=== PATIENT | male | born 1965 | race Two or more races ===

== ENCOUNTER 2019-01-05 10:28 | Inpatient (IN) | payer MEDICAID, OTHER ==
--- NOTE | 2019-01-05 11:22 | EDPHY ---
H & P Time Seen by Provider: 01/05/19 11:20 HPI/ROS: CHIEF COMPLAINT: Near syncope today HISTORY OF PRESENT ILLNESS: Patient takes ibuprofen intermittently for back pain, was worse yesterday and was seen at the clinic and prescribed Zanaflex. Today at 9:00 a.m. He had an episode at home of syncope or near syncope and his describes eyes rolling back and he was unresponsive for a few seconds while sitting. Some generalized weakness today, denies melena. Denies chest pain or shortness of breath. No seizure activity described. Asymptomatic now except for some back pain. REVIEW OF SYSTEMS: Eye: no change in vision ENT: Mild sore throat Cardiac: HPI Pulmonary: no cough or SOB Abdomen: no vomiting, diarrhea, abdominal pain Musculoskeletal: HPI Skin: no rash Neuro: no headache Constitutional: no fever : no urinary symptoms A comprehensive 10 point review of systems is otherwise negative aside from elements mentioned in the history of present illness. PAST MEDICAL HISTORY: Negative except for HPI Social history: Regular alcohol per the , history and physical performed with transit mixer operator personally present Nelia Ball General Appearance: Alert and conversant, cooperative. Eyes: No scleral icterus. ENT, Mouth: Normal mucous membranes. No tongue laceration or abrasion. Respiratory: Normal respiratory effort, breath sounds equal, lungs are clear to auscultation. Cardiovascular: Regular rate and rhythm. Gastrointestinal: Abdomen is soft and non tender. Rectal exam shows dark brown stool sent for Hemoccult. Neurological: Alert, face symmetric, normal motor and sensory in extremities. Skin: Warm and dry, no rashes. Musculoskeletal: No peripheral edema. Psychiatric: Not agitated. Emergency Department course/MDM: Hemoglobin and hematocrit 7 and 24, blood pressure 87/55 on 2nd. IV fluid resuscitation, admission for evaluation of new diagnosis of severe anemia. Nahun Hager 1143. Blood pressure improved to greater than 100 with IV fluid resuscitation. I think this is related to volume depletion and anemia, not to infection or sepsis. Smoking Status: Never smoked Constitutional: Initial Vital Signs Temperature (C) 36.4 C 01/05/19 10:33 Heart Rate 52 L 01/05/19 10:33 Respiratory Rate 15 01/05/19 10:33 Blood Pressure 100/67 01/05/19 10:33 O2 Sat (%) 99 01/05/19 10:33 O2 Delivery Mode Room Air Allergies/Adverse Reactions: No Known Allergies Allergy (Verified 01/05/19 14:01) Home Medications: Medication Instructions Recorded Calcium Carbonate [Oyster Shell 500 mg PO DAILY 01/05/19 Calcium 500 mg (*)] Ibuprofen [Motrin (*)] 200 mg PO BID PRN 01/05/19 Tizanidine HCl [Zanaflex] 4 mg PO Q6 PRN 01/05/19 Medical Decision Making - Diagnostics EKG Interpretation: 12-lead EKG interpreted by me; official reading is in computer system. My interpretation is sinus bradycardia rate 49 with early repolarization. Differential Diagnosis: Differential for anemia considered including but not limited to upper GI bleed, hemolysis, bone marrow failure, lower GI bleed. Critical Care Time: Critical care time spent by me, Dr. Winkler, exclusively with the care of this patient was 35 minutes, exclusive of PA or MOBILE ELECTRONICS INSTALLER time and exclusive of separate procedures. The organ system at risk was hematologic and I ordered IV fluid resuscitation, serial exam, admission to hospital to stabilize the patient and prevent worsening of the patient's condition. - Data Points Laboratory Results: Laboratory Results 01/05/19 10:45 01/05/19 10:45 01/05/19 01/05/19 01/05/19 11:40 11:12 10:45 WBC RBC Hgb Hct MCV MCH MCHC RDW Plt Count PT Pending INR Pending APTT Pending Sodium Potassium Chloride Carbon Dioxide Anion Gap BUN Creatinine Estimated GFR Glucose Calcium Iron TIBC Iron Saturation Ferritin Total Bilirubin AST ALT Alkaline Phosphatase POC Troponin I 0.00 ng/mL ng/mL (0.00-0.08) Total Protein Albumin Stool Occult Bld Scrn NEGATIVE (NEGATIVE) Patient ABO/Rh Antibody Screen 01/05/19 01/05/19 01/05/19 10:45 10:45 10:45 WBC 5.04 10^3/uL 10^3/uL (3.80-9.50) RBC 3.03 10^6/uL L 10^6/uL (4.40-6.38) Hgb 7.7 g/dL L g/dL (13.7-17.5) Hct 24.7 % L % (40.0-51.0) MCV 81.5 fL fL (81.5-99.8) MCH 25.4 pg L pg (27.9-34.1) MCHC 31.2 g/dL L g/dL (32.4-36.7) RDW 17.1 % H % (11.5-15.2) Plt Count 165 10^3/uL 10^3/uL (150-400) PT INR APTT Sodium Potassium Chloride Carbon Dioxide Anion Gap BUN Creatinine Estimated GFR Glucose Calcium Iron 13.0 mcg/dL L mcg/dL (49.0-199.0) TIBC Pending Iron Saturation Pending Ferritin Pending Total Bilirubin AST ALT Alkaline Phosphatase POC Troponin I Total Protein Albumin Stool Occult Bld Scrn Patient ABO/Rh O POSITIVE Antibody Screen NEGATIVE 01/05/19 10:45 WBC RBC Hgb Hct MCV MCH MCHC RDW Plt Count PT INR APTT Sodium 133 mEq/L L mEq/L (135-145) Potassium 3.7 mEq/L mEq/L (3.5-5.2) Chloride 104 mEq/L mEq/L (97-110) Carbon Dioxide 20 mEq/l L mEq/l (22-31) Anion Gap 9 mEq/L mEq/L (6-14) BUN 6 mg/dL L mg/dL (7-23) Creatinine 0.6 mg/dL L mg/dL (0.7-1.3) Estimated GFR > 60 Glucose 107 mg/dL H mg/dL (70-100) Calcium 7.5 mg/dL L mg/dL (8.5-10.4) Iron TIBC Iron Saturation Ferritin Total Bilirubin 0.9 mg/dL mg/dL (0.1-1.4) AST 103 IU/L H IU/L (17-59) ALT 44 IU/L IU/L (21-72) Alkaline Phosphatase 166 IU/L H IU/L (38-126) POC Troponin I Total Protein 7.3 g/dL g/dL (6.3-8.2) Albumin 2.8 g/dL L g/dL (3.5-5.0) Stool Occult Bld Scrn Patient ABO/Rh Antibody Screen Medications Given: Discontinued Medications Sodium Chloride (Ns) 1,000 mls @ 0 mls/hr IV EDNOW ONE; Wide Open PRN Reason: Protocol Stop: 01/05/19 11:44 Last Admin: 01/05/19 12:03 Dose: 1,000 mls Point of Care Test Results: Chemistry 01/05/19 11:12 POC Troponin I 0.00 ng/mL ng/mL (0.00-0.08) Departure - Departure Disposition: [facility] Inpatient Acute Clinical Impression: Anemia Qualifiers: Anemia type: unspecified type Qualified Code(s): D64.9 - Anemia, unspecified Syncope Qualifiers: Syncope type: unspecified Qualified Code(s): R55 - Syncope and collapse Condition: Good
--- NOTE | 2019-01-05 11:29 | CPEKG ---
Test Reason : OPEN Blood Pressure : / mmHG Vent. Rate : 049 BPM Atrial Rate : 049 BPM P-R Int : 191 ms QRS Dur : 107 ms QT Int : 508 ms P-R-T Axes : 055 031 058 degrees QTc Int : [address] elev, probable normal early repol pattern Confirmed by Lisandro Winkler ([id number]) on 01/05/2019 11:28:30 AM Referred By: PHYSICIAN ED Confirmed By:Lisandro Winkler
[2019-01-05] MEDS ORDERED: NS 1,000 ML IV ONE (11:43)
[2019-01-05] MEDS ORDERED: ONDANSETRON DISINTEGRATING 4 MG TAB PO PRN (14:27)
[2019-01-05] MEDS ORDERED: ONDANSETRON 4 MG/2 ML VIAL IVP PRN (14:27)
[2019-01-05] MEDS ORDERED: NS 1,000 ML IV SCH (14:30)
[2019-01-05 14:57] LABS: INR 1.22 (0.83-1.16); PROTIME(PATIENT) 14.9 SEC (12.0-15.0)
--- NOTE | 2019-01-05 15:16 | GHP ---
[f rep st] HISTORY AND PHYSICAL DATE OF ADMISSION: 01/05/2019 HISTORY OF PRESENT ILLNESS: The patient is a pleasant 53-year-old gentleman with a history of heavy alcohol use who presents to the hospital with dizziness. 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 He drinks what sounds like about a 6-pack a day and least and takes a fair amount of ibuprofen fo r musculoskeletal pain. He was recently seen at a clinic where he was given Zanaflex and he took it and developed dizziness and presented to the ER today. He was found to be anemic. He also had an ep isode of near syncope with his eyes rolling back and being unresponsive for a couple of minutes. When I speak with the patient, both with and without md physician dermatologist, he says he has had no vomiting, no hematemesis. He may or may not have had melena. At some point, he has some abdominal pain, and his eyes may have turned yellow, and he has noticed a little bit of edema around his ankles. No fever, chills, cough, sputum, nausea, vomiting, diarrhea. PAST MEDICAL HISTORY: None. ALLERGIES: No known drug allergies. FAMILY HISTORY: Notable for mother with diabetes, she is in her 80s. 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 Alcohol as in the HPI. He does not smoke cigarettes. PHYSICAL EXAMINATION: VITAL SIGNS: Presenting: Temp 36.4 blood pressure 100/67, as low as 87/55, p ulse 49 to 65, breathing 15 times a minute, 99% on room air. GENERAL: In no acute distress. HEENT: Sclerae anicteric, but injected. Oropharynx is clear. Mucous membranes are moist. NECK: Supple. No lymphadenopathy or JVD. LUNGS: Clear to auscultation bilaterally. HEART: S1, S2. Not tachyc ardic. ABDOMEN: Soft, nontender, nondistended. There is no right upper quadrant tenderness. LOWER EXTREMITIES: Trace edema bilaterally. Calves are nontender. SKIN: Without rash. NEUROLOGIC: No nfocal. DIAGNOSTIC STUDIES: EKG interpreted by me shows sinus at 49 with normal axis and intervals. There i s no ST or T-wave changes. There is ST-elevation in V4, V5 with upward sloping that is consistent wi th early repolarization injury pattern. LABS: Stool occult blood is negative. Sodium 133, potassium 3.7, chloride 104, bicarb 20, BUN 6, cr eatinine 0.6, glucose 107. AST 103, ALT 44, alkaline phosphatase 166. Troponin 0.00. Albumin is lo w at 2.8. White count 5, hematocrit 24.7, MCV is normal at 81.5, RDW is elevated at 17.1, platelet c ount 165. I discussed the case with . , Dr. Lisandro Winkler. ASSESSMENT/PLAN: 53-year-old gentleman presents with syncope/presyncope, incidentally discovered ane alta. 1. Syncope. This does not appear to be cardiac syncope. We will follow him on telemetry . I suspect this is a reaction to Zanaflex or perhaps his anemia. 2. Anemia. This is concern for blood loss. The history is a little bit confusing as the story will change between providers, although it sounds like he may or may not have been having melena. Regard ing his anemia, I will: a. Check iron studies. b. Repeat hematocrit now. c. Have Gastroenterology see him for probable upper and lower endoscopy. 3. Question liver disease. The patient has liver function tests consistent with at least a mild alc oholic hepatitis, but the low albumin is concerning for underlying liver disease. We will check a [facility] upper quadrant ultrasound and coagulation. 4. Query alcohol withdrawal. The patient is not in withdrawal now. We will follow. 5. Prophylaxis contraindicated. Will provide sequential compression devices. 6. Disposition. Observation status for now. 7. Diet. Regular, n.p.o. past midnight. /[id number]/MODL
[2019-01-05 15:32] LABS: PLATELET COUNT 122 10^3/uL (150-400)
[2019-01-05] MEDS: PANTOPRAZOLE SODIUM 40 MG TAB PO SCH ×2 (15:49→20:35)
--- NOTE | 2019-01-05 21:27 | GCON ---
[f rep st] CONSULTATION DATE OF CONSULTATION: 01/05/2019 REQUESTING PHYSICIAN: Sukumar Hager MD INDICATION FOR CONSULTATION: Anemia, epigastric pain. HISTORY OF PRESENT ILLNESS: I have been asked by Dr. Hager to see the patient in consultation for chief complaint of anemia. The patient is a pleasant 53- year-old gentleman who works in [employer]. He has a moderate to heavy alcohol intake of at least 6 beers a day and sometimes more on weekends. He uses a fair amount of ibuprofen for his musculoskeletal pain related to his job. He had gotten a dose of Zanaflex from a clinic where he was seen there recently, and he developed dizziness and presented to the emergency room. In the ER, he was noted to have significant anemia and near syncope. He was admitted for the above, and I am called to help evaluate in that regard. He denies any hematochezia, hematemesis, melena. He says he has had a decreased appetite recently. There is no family history of colon cancer or colon polyps to his knowledge. He denies any infectious symptoms. I am now here to help and evaluate his anemia. PAST MEDICAL HISTORY: None. PAST SURGICAL HISTORY: None. ALLERGIES: No known drug allergies. MEDICATIONS: At home, ibuprofen and Zanaflex as noted above. In-house, he is written for calcium carbonate, Zofran p.r.n., Protonix 40 mg p.o. b.i.d., and packed red blood cells. FAMILY HISTORY: No colon cancer or colon polyps. His mother has diabetes, but she is in her 80s. SOCIAL HISTORY: Works as a job forwarder. He drinks at least a 6-pack a day. He does not smoke. He uses ibuprofen as noted above. ROS: a complete review of systems was performed and is negative other than noted in HPI PHYSICAL EXAM: GENERAL: Well-developed, well-nourished male sitting in his bed in no acute distress. VITAL SIGNS: His blood pressure is 115/62, pulse 67 , respirations 16, 98% on room air, temperature 36.5. HEENT: Eyes: Anicteric. JILLIAN, EOMI. Mouth: No lesions. Moist mucous membranes. NECK: Supple. Full range of motion. No JVD. BACK: No spine tenderness. No CVA tenderness. LUNGS: Coarse breath sounds. No rhonchi, rales or egophony appreciated. ABDOMEN: Bowel sounds are normal in pitch and frequency. Soft with epigastric tenderness. Mild guarding. No rebound. No hepatosplenomegaly. EXTREMITIES: No cyanosis, clubbing, edema. NEUROLOGIC: Cranial nerves intact. Nonfocal. Alert, oriented x3. LABORATORY DATA: From today, sodium 133, potassium 3.7, chloride 104, bicarb 20 , BUN 6, creatinine 0.6, glucose 107, calcium 7.5, bilirubin 0.3, AST 103, ALT 44, alkaline phosphatase 166, albumin 2.8, total protein 7.3. Pro time 14.9, INR 1.22, PTT 37.1. WBC 5.04, hemoglobin 7.7, hematocrit 24.7, platelet count 165. After hydration, his repeat hemoglobin was 6.0, hematocrit 19.9. His stool occult blood was negative. Abdominal ultrasound performed today revealed normal liver size, little change since 2014. Trace ascites. Gallbladder has nonspecific newly mild-thickened wall without any stone formation or pericholecystic fluid. The common bile duct measures 4 mm. Spleen is normal in size. Iron 13, TIBC 384, iron sat 3%, ferritin 32.7. ASSESSMENT: 1. Iron deficiency anemia. 2. Epigastric pain. 3. Overuse of alcohol. 4. Overuse of nonsteroidal anti-inflammatory drugs. .. RECOMMENDATIONS: 1. The patient has eaten a solid food dinner. Therefore, I will not try to prep him for colonoscopy, but I will plan at least an EGD tomorrow, which I think will reveal the etiology of his anemia, as I suspect that he has gastric ulcerations related to NSAIDs. 2. PRBCs as per hospitalist. 3. PPI. 4. Recommend cessation of alcohol. 5. Treatment of his other medical issues as per hospitalists. 6. Screening colonoscopy as an outpatient Thank you for allowing me to participate in the patient's healthcare. Do not hesitate to call me if any questions. /[id number]/MODL MTDD
[2019-01-06 05:45] LABS: PLATELET COUNT 147 10^3/uL (150-400)
[2019-01-06] MEDS ORDERED: LR 1,000 ML IV ONE (08:04)
--- NOTE | 2019-01-06 08:13 | PDANEPAE ---
ANE History of Present Illness Anemia for EGD ANE Past Medical History - Cardiovascular History Hx Hypertension: No - Pulmonary History Hx COPD: No Hx Oxygen in Use at Home: No Hx Sleep Apnea: No - Endocrine History Hx Diabetes: No ANE Review of Systems Review of Systems: ANE Patient History - Allergies Allergies/Adverse Reactions: No Known Allergies Allergy (Verified 01/05/19 14:01) - Home Medications Home medications: home medication list seen and reviewed Home Medications: Calcium Carbonate [Oyster Shell Calcium 500 mg (*)] 500 mg PO DAILY 01/05/19 [ Last Taken Unknown] Ibuprofen [Motrin (*)] 200 mg PO BID PRN 01/05/19 [Last Taken Unknown] Tizanidine HCl [Zanaflex] 4 mg PO Q6 PRN 01/05/19 [Last Taken 01/05/19 07:00] - NPO status NPO Status: no food or drink >8 hours - Anes Hx Anes Hx: no prior problems - Smoking Hx Smoking Status: Never smoked ANE Labs/Vital Signs - Labs Result Diagrams: 01/06/19 05:26 01/06/19 05:26 - Vital Signs Blood Pressure: 110/69 Heart Rate: 82 Respiratory Rate: 16 O2 Sat (%): 93 Height: 170.18 cm Weight: 65.771 kg ANE Physical Exam - Airway Neck exam: FROM Mallampati Score: Class 2 Mouth exam: poor dentition - Pulmonary Pulmonary: no respiratory distress - Cardiovascular Cardiovascular: regular rate and rhythym - ASA Status ASA Status: III ANE Anesthesia Plan Anesthesia Plan: MAC (IV GA)
[2019-01-06] MEDS ORDERED: PROPOFOL 200 MG/20 ML VIAL ONE ×3 (08:23→08:38)
[2019-01-06] MEDS ORDERED: NALOXONE HCL 0.4 MG/ML INJ IVP PRN (08:44)
[2019-01-06] MEDS ORDERED: ONDANSETRON 4 MG/2 ML VIAL IVP PRN (08:44)
--- NOTE | 2019-01-06 08:53 | POSTANESTH ---
Post Anesthetic Evaluation Cardiovascular Status: Similar to Pre-Op Cond Respiratory Status: Similar to Pre-op Cond. Level of Consciousness/Mental Status: Alert and Oriented Pain Control: Adequate, Prn Tx Ordered Nausea/Vomiting Control: Adequate, Prn Tx Ordered Complications Possibly Related to Anesthesia: None Noted
[2019-01-06] MEDS: PANTOPRAZOLE SODIUM 40 MG TAB PO SCH ×2 (09:32→20:55)
[2019-01-06] MEDS: CALCIUM CARBONATE 500 MG TAB PO SCH (09:32)
--- NOTE | 2019-01-06 09:41 | GIREPORT ---
On License Of [facility] Surgical Services - Endoscopy Department Patient Name: Reece Gamble Procedure Date: 01/06/2019 7:51 AM Patient Type: Inpatient Attending MD/ ER Physician: Je Riley MD Procedure: Upper GI endoscopy Indications: Iron deficiency anemia due to suspected upper gastrointestinal bleeding Providers: Je Riley MD Medicines: Propofol per Anesthesia Complications: No immediate complications. Estimated blood loss: Minimal. Description of Procedure: After obtaining informed consent, the endoscope was passed under direct vision. Throughout the procedure, the patient's blood pressure, pulse, and oxygen saturations were monitored continuously. The Endoscope was intro duced through the mouth, and advanced to the third part of duodenum. The uppe r GI endoscopy was accomplished without difficulty. The patient tolerated th e procedure well. Findings: The examined esophagus was normal. A hiatal hernia was present. Scattered moderate inflammation characterized by erosions, erythema, friability and granularity was found in the gastric body and in the gas tric antrum. Biopsies were taken with a cold forceps for histology. Estimate d blood loss was minimal. The examined duodenum was normal. Biopsies for histology were taken wit h a cold forceps for evaluation of celiac disease. Estimated blood loss was minimal. The exam was otherwise without abnormality. Estimated Blood Loss: Estimated blood loss was minimal. Post Op Diagnosis: - Normal esophagus. - Hiatal hernia. - Gastritis. Biopsied. - Normal examined duodenum. Biopsied. - The examination was otherwise normal. Recommendation: - Await pathology results. - My office will call with the pathology result with 5-7 days. If you h ave not heard from my office by 12-14, do not assume the pathology is breanna l, please call [phone] to get the pathology results. - Perform a colonoscopy tomorrow. - He now states he get nose bleeds every morning which could be a compo nent of his anemia - Clear liquid diet. - Return patient to [facility] for ongoing care. - Use Protonix (pantoprazole) 40 mg PO daily. At lest 8 weeks, long ter m if he stays on NSAIDs - Thank you for allowing me to help in your patient's care. Do not hesi gonzalez to call with any questions. Attending Participation: I personally performed the entire procedure. Rosemary Shah M.D Je Riley MD 01/06/2019 9:40:53 AM This report has been signed electronicallyMatthew MD Rosemary Number of Addenda: 0 Note Initiated On: 01/06/2019 7:51 AM [email or web address]
--- NOTE | 2019-01-06 09:53 | ASMTCASEMG ---
Living Arrangements What is your living Answers: With Spouse arrangement? Who do you live with? Type Of Residence What kind of residence do Answers: Apartment you live in? Discharge Plan Comments Coordination Status Comments Notes: Patient is a 53yo male who presents with syncope. He is being admitted for syncope, anemia, possible liver disease,ETOH. Patient is currently OBS. Patient is uninsured and most likely will d/c independently to outpatient follow up. CM will follow. Date Signed: 01/06/2019 09:52 AM Electronically Signed By:Donna Farnsworth LCSW
--- NOTE | 2019-01-06 12:44 | HOSPPROG ---
Hospitalist Progress Note Assessment/Plan: 53 yo M a/w dizziness, presyncope, anemia presyncope: no events tele (interp by me) suspect related to muscle relaxant and anemia follow ABLA: s/p 2 units irondeficient fe deficiency: received 2 units packed cells, whic is iron egd w/o clear source of blood loss colonoscopy in AM ? alcohol liver disease abnormal PT u/s unremarkable egd w/out e/o portal htn proph: scd dispo: inpt, to floor Subjective: case d/w dr acuña. egd unremarkable. no further bleeding. less dizzy Objective: Vital Signs Temp Pulse Resp BP Pulse Ox 36.7 C 81 19 117/77 94 01/06/19 11:49 01/06/19 11:49 01/06/19 11:49 01/06/19 11:49 01/06/19 11:49 Laboratory Results 01/06/19 05:26 01/06/19 05:26 01/05/19 01/06/19 01/07/19 05:59 05:59 05:59 Intake Total 2400 350 Output Total 0 Balance 2400 350 PT 14.9 SEC (12.0-15.0) 01/05/19 10:45 INR 1.22 (0.83-1.16) H 01/05/19 10:45 - Physical Exam Constitutional: no apparent distress, appears nourished Eyes: PERRL, anicteric sclera Ears, Nose, Mouth, Throat: moist mucous membranes, hearing normal Cardiovascular: regular rate and rhythym, no murmur, rub, or gallop Respiratory: no respiratory distress, no rales or rhonchi Gastrointestinal: normoactive bowel sounds, soft, non-tender abdomen, No guarding, No rebound Genitourinary: no bladder fullness, No connolly in urethra Skin: warm, normal color Musculoskeletal: full muscle strength Neurologic: AAOx3 ICD10 Worksheet Patient Problems: Problems Problem Status Onset Anemia Acute Syncope Acute
[2019-01-06] MEDS: ACETAMINOPHEN 325 MG TAB PO PRN (14:51)
--- NOTE | 2019-01-06 16:11 | PDMN ---
Medical Necessity Medical necessity: Change to inpt as of 01/06/19 @ 12:45, meets inpt criteria per MD order and MCG M-35, Anemia, Iron Deficiency or Unspecified, A-1 days. 53 y/o w/hx heavy alcohol use admitted w/anemia and syncope/near syncope, H&H yesterday 6.0, 19.9- transfused 2u blood, H& H today 7.9, 25.0. Upgraded to inpt for further diagnostic testing to evaluate anemia. GI consult,EGD done today, will have colonoscopy tomorrow. LFT's elevated, albumin low at 2.4, dizziness improved but still has occ. Est LOS>2MN for ongoing eval/management of above.
[2019-01-06] MEDS ORDERED: PEG 3350/NA SULF,BICARB,CL/KCL (GAVILYTE-G) 4000 ML BTL PO ONE (16:16)
[2019-01-07 04:39] LABS: PLATELET COUNT 146 10^3/uL (150-400)
[2019-01-07] MEDS: CALCIUM CARBONATE 500 MG TAB PO SCH (09:18)
[2019-01-07] MEDS: PANTOPRAZOLE SODIUM 40 MG TAB PO SCH (09:18)
[2019-01-07] MEDS ORDERED: LR 1,000 ML IV ONE (09:53)
--- NOTE | 2019-01-07 10:53 | PDANEPAE ---
ANE History of Present Illness colonoscopy ANE Past Medical History - Cardiovascular History Hx Hypertension: No Hx Arrhythmias: No Hx Chest Pain: No Hx Coronary Artery / Peripheral Vascular Disease: No - Pulmonary History Hx COPD: No Hx Oxygen in Use at Home: No Hx Sleep Apnea: No Sleep Apnea Screening Result - Last Documented: Negative - Endocrine History Hx Diabetes: No - GI History Gastrointestinal History Comment: ANEMIA ANE Review of Systems Review of Systems: - Exercise capacity Exercise capacity: >=4 METS ANE Patient History - Allergies Allergies/Adverse Reactions: No Known Allergies Allergy (Verified 01/05/19 14:01) - Home Medications Home Medications: Calcium Carbonate [Oyster Shell Calcium 500 mg (*)] 500 mg PO DAILY 01/05/19 [ Last Taken Unknown] Ibuprofen [Motrin (*)] 200 mg PO BID PRN 01/05/19 [Last Taken Unknown] Tizanidine HCl [Zanaflex] 4 mg PO Q6 PRN 01/05/19 [Last Taken 01/05/19 07:00] - NPO status NPO Status: no food or drink >8 hours NPO Since - Liquids (Date): 01/06/19 NPO Since - Liquids (Time): 00:00 NPO Since - Solids (Date): 01/06/19 NPO Since - Solids (Time): 00:00 - Anes Hx Anes Hx: no prior problems - Smoking Hx Smoking Status: Never smoked - Alcohol Use Alcohol Use: Heavy - Family Anes Hx Family Anes Hx: none ANE Labs/Vital Signs - Labs Result Diagrams: 01/07/19 03:45 01/06/19 05:26 - Vital Signs Blood Pressure: 127/85 Heart Rate: 75 Respiratory Rate: 12 O2 Sat (%): 95 Height: 170.18 cm Weight: 65.771 kg ANE Physical Exam - Airway Neck exam: FROM Mallampati Score: Class 2 Mouth exam: normal dental/mouth exam - Pulmonary Pulmonary: no respiratory distress, clear to auscultation - Cardiovascular Cardiovascular: regular rate and rhythym, no murmur, rub, or gallop - ASA Status ASA Status: II ANE Anesthesia Plan Anesthesia Plan: GA with mask Total IV Anesthesia: Yes
[2019-01-07] MEDS ORDERED: PROPOFOL/EMULSION 500 MG/50 ML BOTTLE IV ONE (10:55)
[2019-01-07] MEDS ORDERED: NALOXONE HCL 0.4 MG/ML INJ IVP PRN (11:14)
--- NOTE | 2019-01-07 11:17 | POSTANESTH ---
Post Anesthetic Evaluation Cardiovascular Status: Normal, Stable, Similar to Pre-Op Cond Respiratory Status: Normal, Stable, Similar to Pre-op Cond. Level of Consciousness/Mental Status: Can Participate in Eval, Alert and Oriented Pain Control: Adequate, Prn Tx Ordered Nausea/Vomiting Control: Adequate, Prn Tx Ordered Complications Possibly Related to Anesthesia: None Noted
--- NOTE | 2019-01-07 11:21 | GIREPORT ---
[facility] - Endoscopy Department Patient Name: Reece Gamble Procedure Date: 01/07/2019 9:33 AM Patient Type: Inpatient Attending MD/ ER Physician: Mike White MD Procedure: Colonoscopy Indications: Iron deficiency anemia Providers: Mike White MD Medicines: Propofol per Anesthesia Complications: No immediate complications. Description of Procedure: After obtaining informed consent, the scope was passed under direct vis ion. Throughout the procedure, the patient's blood pressure, pulse, and oxyg en saturations were monitored continuously. The Colonoscope with irrigatio n channel was introduced through the anus and advanced to the cecum, identified by appendiceal orifice and ileocecal valve. The colonoscopy was performed without difficulty. The patient tolerated the procedure well. The quality of the bowel preparation was excellent. The ileocecal valve, appendiceal orifice, and rectum were photographed. Findings: Two sessile polyps were found in the transverse colon. The polyps were 2 to 3 mm in size. These polyps were removed with a cold biopsy forceps. Resection and retrieval were complete. A 3 mm polyp was found in the ascending colon. The polyp was sessile. T he polyp was removed with a cold biopsy forceps. Resection and retrieval w ere complete. The exam was otherwise without abnormality on direct and retroflexion v iews. Estimated Blood Loss: Estimated blood loss: none. Post Op Diagnosis: - Two 2 to 3 mm polyps in the transverse colon, removed with a cold bio psy forceps. Resected and retrieved. - One 3 mm polyp in the ascending colon, removed with a cold biopsy for ceps. Resected and retrieved. - The examination was otherwise normal on direct and retroflexion views . - No source for chronic GI bleeding identified on EGD from yesterday or colonoscopy from today. Recommendation: - Await pathology results. - Resume regular diet. - Repeat colonoscopy for surveillance based on pathology results. - If the pathology report reveals adenomatous tissue, then repeat the colonoscopy for surveillance in 3 years. - Ok for d/c from GI point of view. - Would consider epistaxis as source of possible GI blood loss. If significant epistaxis would recommend ENT consult. - IF ENT evaluation unremarkable recommend VCE as outpatient. - Will sign off, please call with further questions. - Thank you for allowing me to participate in the care of your patient. Attending Participation: I personally performed the entire procedure. Mike White MD Mike White MD 01/07/2019 11:20:25 AM This report has been signed electronicallyStalonso White MD Number of Addenda: 0 Note Initiated On: 01/07/2019 9:33 AM Total Procedure Duration Time 0 hours 9 minutes 54 seconds [email or web address]
[2019-01-07] MEDS: ACETAMINOPHEN 325 MG TAB PO PRN (13:20)
[2019-01-07] MEDS ORDERED: CALCIUM GLUCONATE 2 GM in D5W 50 ML IV ONE (15:02)
[2019-01-07 15:04] VITALS: BP 117/70
--- NOTE | 2019-01-07 15:04 | HOSPPROG ---
Hospitalist Progress Note Assessment/Plan: 53 yo M a/w dizziness, presyncope, anemia presyncope: no events tele (interp by me) suspect related to muscle relaxant and anemia follow ABLA: s/p 2 units irondeficient fe deficiency: received 2 units packed cells, which is iron egd w/o clear source of blood loss colonoscopy w no clear source ? alcohol liver disease abnormal PT u/s unremarkable egd w/out e/o portal htn proph: scd dispo: to home today outpt GI follow up > 30 minutes on dc Subjective: no source of blood loss on colonscopy. polyps biopsied. anxious for dc Objective: Vital Signs Temp Pulse Resp BP Pulse Ox 36.6 C 81 18 113/67 96 01/07/19 13:56 01/07/19 13:56 01/07/19 13:56 01/07/19 13:56 01/07/19 13:56 Laboratory Results 01/07/19 03:45 01/06/19 01/07/19 01/08/19 05:59 05:59 05:59 Intake Total 740 450 Balance 740 450 PT 14.9 SEC (12.0-15.0) 01/05/19 10:45 INR 1.22 (0.83-1.16) H 01/05/19 10:45 - Physical Exam Constitutional: no apparent distress, appears nourished Eyes: PERRL, anicteric sclera Ears, Nose, Mouth, Throat: moist mucous membranes, hearing normal Cardiovascular: regular rate and rhythym, no murmur, rub, or gallop Respiratory: no respiratory distress, no rales or rhonchi Gastrointestinal: normoactive bowel sounds, soft, non-tender abdomen Genitourinary: no bladder fullness, No connolly in urethra Skin: warm, normal color Musculoskeletal: full muscle strength ICD10 Worksheet Patient Problems: Problems Problem Status Onset Anemia Acute Syncope Acute
--- NOTE | 2019-01-07 15:47 | GDS ---
[f rep st] DISCHARGE SUMMARY DISCHARGE DIAGNOSES: 1. Presyncope. [place] secondary to Zanaflex. 2. Iron deficiency anemia. 3. Nosebleeds. 4. Likely mild alcoholic liver disease. Please see admission history and physical by Dr. Sukumar Hager. The patient presented to the hospital on the with presyncope in the setting of having recently r eceived a muscle relaxant. Workup for presyncope revealed a normal EKG, negative troponins, and no e vents on telemetry. He was noted to have a very low hemoglobin with a hemoglobin under 7, received 2 units of packed cells. He had iron deficiency by iron studies. He underwent upper endoscopy which was relatively unrevealing. Further history revealed he had somew hat frequent nosebleeds. Coags showed an INR of 1.2, suggestive of mild liver disease. Colonoscopy showed no source of blood loss. He was discharged home on oral iron. He received 2 units of packed cells and with outpatient followu p with Gastroenterology for biopsy results. Greater than 30 minutes spent on this discharge. /[id number]/MODL
== END 2019-01-07 16:40 | disposition home or self-care (01) | DRG 812 ==
LOC: INTOOBSV 11:49 → F2N 14:37 → OBSVTOIN 01-06 12:45 → F1N 01-06 14:41
PROVIDERS: ADMIT Internal Medicine; ATTEND Internal Medicine
DX: D50.9 Iron deficiency anemia, unspecified (principal); R55 Syncope and collapse; E86.9 Volume depletion, unspecified; T48.1X5A Adverse effect of skeletal muscle relaxants [neuromuscular blocking agents], initial encounter; Z72.89 Other problems related to lifestyle; K76.9 Liver disease, unspecified
CPT/HCPCS: 84484-ER; G0378; J0610; J2405; J2704; P9016; P9021